=== PATIENT | female | born 1960 | race African-American/Black ===

== ENCOUNTER 2018-04-14 04:58 | Inpatient (IN) | payer OTHER ==
[~2018-04-14] VITALS: Ht 170.2 cm; Wt 59.0 kg
--- NOTE | 2018-04-14 05:10 | PHYS DOC ---
Past Medical History Past Medical History: Other Additional Past Medical Histor: ANOXIC BRAIN INJURY Past Surgical History: Other Additional Past Surgical Histo: POOR HISTORIAN Alcohol Use: None Drug Use: None Adult General Chief Complaint Chief Complaint: ALTERED MENTAL STATUS HPI HPI Patient is a 57 year old female who presents with increased confusion and wandering Patient is a resident of [facility] and [facility]. Nursing staff states that she had increased confusion and wandering over the last 3 hours. She 's been trying to escape from the facility. She is confused and unable to give a history. She is oriented to self only. Review of Systems Review of Systems ROS limites though patient denies complaints, no pain Constitutional: Denies fever or chills [] Eyes: Denies change in visual acuity, redness, or eye pain [] HENT: Denies nasal congestion or sore throat [] Respiratory: Denies cough or shortness of breath [] Cardiovascular: No additional information not addressed in HPI [] GI: Denies abdominal pain, nausea, vomiting, bloody stools or diarrhea [] : Denies dysuria or hematuria [] Musculoskeletal: Denies back pain or joint pain [] Integument: Denies rash or skin lesions [] Neurologic: Denies headache, focal weakness or sensory changes [] Endocrine: Denies polyuria or polydipsia [] All other systems were reviewed and found to be within normal limits, except as documented in this note. Allergies Allergies Allergies Coded Allergies Type Severity Reaction Last Updated Verified No Known Drug Allergies 09/26/13 No Physical Exam Physical Exam Constitutional: Well developed, well nourished, no acute distress, non-toxic appearance. HENT: Normocephalic, atraumatic, bilateral external ears normal, oropharynx moist, no oral exudates, nose normal. Eyes: PERRLA, EOMI, conjunctiva normal, no discharge. Neck: Normal range of motion, no tenderness, supple, no stridor. Cardiovascular:Heart rate regular rhythm, no murmur Lungs & Thorax: Bilateral breath sounds clear to auscultation Abdomen: Bowel sounds normal, soft, no tenderness, no masses, no pulsatile masses. Skin: Warm, dry, no erythema, no rash. Back: No tenderness, no CVA tenderness. Extremities: No tenderness, no cyanosis, no clubbing, ROM intact, no edema. Neurologic: Alert and oriented X 1, normal motor function, normal sensory function, no focal deficits noted. Psychologic: Affect normal, judgement normal, mood normal. Current Patient Data Vital Signs Vital Signs Date Time Temp Pulse Resp B/P (MAP) Pulse Ox O2 Delivery O2 Flow Rate FiO2 04/14/18 04:59 97.8 80 20 153/65 (94) 98 Room Air 97.8 Lab Values Laboratory Tests Test 04/14/18 05:00 04/14/18 05:10 04/14/18 05:30 Urine Opiates Screen Neg (NEG) Urine Methadone Screen Neg (NEG) Urine Barbiturates Neg (NEG) Urine Phencyclidine Screen Neg (NEG) Urine Amphetamine/Methamphetamine Neg (NEG) Urine Benzodiazepines Screen Neg (NEG) Urine Cocaine Screen Neg (NEG) Urine Cannabinoids Screen Neg (NEG) Urine Ethyl Alcohol Neg (NEG) Urine Collection Type Unknown Urine Color Yellow Urine Clarity Clear Urine pH 6.5 Urine Specific [place] 1.015 Urine Protein Negative mg/dL (NEG-TRACE) Urine Glucose (UA) Negative mg/dL (NEG) Urine Ketones (Stick) Negative mg/dL (NEG) Urine Blood Negative (NEG) Urine Nitrite Negative (NEG) Urine Bilirubin Negative (NEG) Urine Urobilinogen Dipstick 0.2 mg/dL (0.2 mg/dL) Urine Leukocyte Esterase Negative (NEG) Urine RBC Occ /HPF (0-2) Urine WBC Occ /HPF (0-4) Urine Squamous Epithelial Cells Few /LPF Urine Bacteria Few /HPF (0-FEW) White Blood Count 4.2 x10^3/uL (4.0-11.0) Red Blood Count 3.99 x10^6/uL (3.50-5.40) Hemoglobin 11.1 g/dL (12.0-15.5) L Hematocrit 32.3 % (36.0-47.0) L Mean Corpuscular Volume 81 fL (79-100) Mean Corpuscular Hemoglobin 28 pg (25-35) Mean Corpuscular Hemoglobin Concent 34 g/dL (31-37) Red Cell Distribution Width 13.7 % (11.5-14.5) Platelet Count 228 x10^3/uL (140-400) Neutrophils (%) (Auto) 48 % (31-73) Lymphocytes (%) (Auto) 41 % (24-48) Monocytes (%) (Auto) 8 % (0-9) Eosinophils (%) (Auto) 2 % (0-3) Basophils (%) (Auto) 1 % (0-3) Neutrophils # (Auto) 2.0 x10^3uL (1.8-7.7) Lymphocytes # (Auto) 1.7 x10^3/uL (1.0-4.8) Monocytes # (Auto) 0.3 x10^3/uL (0.0-1.1) Eosinophils # (Auto) 0.1 x10^3/uL (0.0-0.7) Basophils # (Auto) 0.0 x10^3/uL (0.0-0.2) Sodium Level 142 mmol/L (136-145) Potassium Level 3.9 mmol/L (3.5-5.1) Chloride Level 106 mmol/L (98-107) Carbon Dioxide Level 26 mmol/L (21-32) Anion Gap 10 (6-14) Blood Urea Nitrogen 12 mg/dL (7-20) Creatinine 0.8 mg/dL (0.6-1.0) Estimated GFR (Cockcroft-Gault) 89.1 BUN/Creatinine Ratio 15 (6-20) Glucose Level 110 mg/dL (70-99) H Calcium Level 9.3 mg/dL (8.5-10.1) Total Bilirubin 0.3 mg/dL (0.2-1.0) Aspartate Amino Transferase (AST) 10 U/L (15-37) L Alanine Aminotransferase (ALT) 14 U/L (14-59) Alkaline Phosphatase 59 U/L (46-116) Troponin I Quantitative < 0.017 ng/mL (0.000-0.055) Total Protein 7.3 g/dL (6.4-8.2) Albumin 3.2 g/dL (3.4-5.0) L Albumin/Globulin Ratio 0.8 (1.0-1.7) L Thyroid Stimulating Hormone (TSH) 2.065 uIU/mL (0.358-3.74) Salicylates Level < 2.8 mg/dL (2.8-20.0) L Salicylate Last Dose Date Unknown Salicylate Last Dose Time Unknown Acetaminophen Level < 2 mcg/ml (10-30) L Acetaminophen Last Dose Date Unknown Acetaminophen Last Dose Time Unknown Ethyl Alcohol Level < 10 mg/dL (0-10) Laboratory Tests 04/14/18 05:30 Laboratory Tests 04/14/18 05:30 EKG EKG ECG 05:20 SB @ 59 with normal axis, normal intervals and no ST-T wave changes suggestive of ischemia Radiology/Procedures Radiology/Procedures [facility] [address] [place] [address] IMAGING REPORT Signed PATIENT: ANETA LIND ACCOUNT: [id number] : 1960 LOCATION: ER AGE: 57 SEX: F EXAM STATUS: REG ER ORD. PHYSICIAN: MARTIN ALLEN MD REASON: confusion-NOT READY 525 PROCEDURE: CHEST AP ONLY CT head without contrast: Reason for examination: Confusion. Comparison is made to previous study dated 07/14/2010. Axial images were obtained through the brain. No contrast was administered. Exposure: One or more of the following individualized dose reduction techniques were utilized for this examination: 1. Automated exposure control 2. Adjustment of the mA and/or kV according to patient size 3. Use of iterative reconstruction technique. The ventricular systems are symmetric and not abnormally dilated. No midline shift is seen. There appears to be some generalized cerebral atrophy with prominence of the CSF spaces especially anterior to the frontal lobes. No midline shift is seen. There is no evidence of intracranial hemorrhage, acute infarct, mass or edema. No abnormalities are seen at the orbits. The paranasal sinuses and mastoid air cells are clear. No acute abnormality seen at the skull. IMPRESSION: Cerebral atrophy. No acute intracranial abnormality evident. Chest AP portable at 0545: The heart size is normal. Mediastinum is unremarkable. Lung verde are clear. No acute bony abnormalities are seen. IMPRESSION: No acute cardiopulmonary disease. Electronically signed by: Tyrell Bonilla MD (04/14/2018 6:09 AM) [facility] DICTATED and SIGNED BY: TYRELL BONILLA MD DATE: 04/14/18605 Course & Med Decision Making Course & Med Decision Making Pertinent Labs and Imaging studies reviewed. (See chart for details) Emergency Department Course Patient with dementia presents with increased confusion DDx- acute encephalopathy, intoxication, infection, dehydration Patient was stable in the ED. Head CT scan unremarkable. CXR unremarkable. ECG and troponin showed no evidence of ACS. Labs unremarkable. U/A unremarkable. 19:15 Patient medically cleared for behavioral health assessment. [facility] has no bed availability 19:[address] Lindsey who agreed with admission. Patient will be 1:1 with sitter. Apoorva Disclaimer Cosmoon Disclaimer This electronic medical record was generated, in whole or in part, using a voice recognition dictation system. Departure Departure Impression: Primary Impression: Dementia with behavioral disturbance Disposition: 09 ADMITTED INPATIENT Admitting Physician: Alistair Lindsey Condition: STABLE Referrals: NON,STAFF (PCP) Problem Qualifiers Primary Impression: Dementia with behavioral disturbance Dementia type: unspecified type Qualified Codes: F03.91 - Unspecified dementia with behavioral disturbance MARTIN ALLEN MD Apr 14, 2018 05:10
[2018-04-14 05:40] LABS: BASO % 1 % (0-3); EOS # 0.1 x10^3/uL (0.0-0.7); EOS % 2 % (0-3); HEMATOCRIT 32.3 % (36.0-47.0); HEMOGLOBIN 11.1 g/dL (12.0-15.5); LYMPH # 1.7 x10^3/uL (1.0-4.8); LYMPH % 41 % (24-48); MEAN CORPUSCULAR HEMOGLOBIN 28 pg (25-35); MEAN CORPUSCULAR HGB CONC 34 g/dL (31-37); MEAN CORPUSCULAR VOLUME 81 fL (79-100); MONO # 0.3 x10^3/uL (0.0-1.1); MONO % 8 % (0-9); NEUT % 48 % (31-73); PLATELET COUNT 228 x10^3/uL (140-400); RED BLOOD COUNT 3.99 x10^6/uL (3.50-5.40); RED CELL DISTRIBUTION WIDTH 13.7 % (11.5-14.5); WHITE BLOOD COUNT 4.2 x10^3/uL (4.0-11.0)
[2018-04-14 05:55] LABS: AMPHETAMINE/METHAMPHETAMINE NEG (NEG); BARBITURATES NEG (NEG); BENZODIAZEPINES NEG (NEG); CANNABINOIDS NEG (NEG); COCAINE NEG (NEG); METHADONE NEG (NEG); OPIATES NEG (NEG); PHENCYCLIDINE NEG (NEG)
[2018-04-14 05:55] LABS: CALCIUM 9.3 mg/dL (8.5-10.1); CREATININE 0.8 mg/dL (0.6-1.0); GFR 89.1; POTASSIUM 3.9 mmol/L (3.5-5.1)
[2018-04-14 06:00] LABS: ALBUMIN 3.2 g/dL (3.4-5.0); ALBUMIN/GLOBULIN RATIO 0.8 (1.0-1.7); TOTAL BILIRUBIN 0.3 mg/dL (0.2-1.0); TOTAL PROTEIN 7.3 g/dL (6.4-8.2)
[2018-04-14 06:07] LABS: ACETAMIN < 2 mcg/ml (10-30); ETHANOL < 10 mg/dL (0-10); SALIC < 2.8 mg/dL (2.8-20.0)
--- NOTE | 2018-04-14 06:12 | RAD ---
CT head without contrast: Reason for examination: Confusion. Comparison is made to previous study dated 07/14/2010. Axial images were obtained through the brain. No contrast was administered. Exposure: One or more of the following individualized dose reduction techniques were utilized for this examination: 1. Automated exposure control 2. Adjustment of the mA and/or kV according to patient size 3. Use of iterative reconstruction technique. The ventricular systems are symmetric and not abnormally dilated. No midline shift is seen. There appears to be some generalized cerebral atrophy with prominence of the CSF spaces especially anterior to the frontal lobes. No midline shift is seen. There is no evidence of intracranial hemorrhage, acute infarct, mass or edema. No abnormalities are seen at the orbits. The paranasal sinuses and mastoid air cells are clear. No acute abnormality seen at the skull. IMPRESSION: Cerebral atrophy. No acute intracranial abnormality evident. Chest AP portable at 0545: The heart size is normal. Mediastinum is unremarkable. Lung verde are clear. No acute bony abnormalities are seen. IMPRESSION: No acute cardiopulmonary disease. Electronically signed by: Mili Soto MD (04/14/2018 6:09 AM) [facility]
[2018-04-14 06:42] LABS: BILIRUBIN,URINE NEGATIVE (NEG); CLARITY,URINE CLEAR; COLOR,URINE YELLOW; NITRITE,URINE NEGATIVE (NEG); PH,URINE 6.5; PROTEIN,URINE NEGATIVE (NEG-TRACE); UROBILINOGEN,URINE 0.2 mg/dL (0.2 mg/dL)
[2018-04-14 06:55] LABS: BACTERIA,URINE FEW /HPF (0-FEW); RBC,URINE OCC /HPF (0-2); SQUAMOUS EPITHELIAL CELL,UR FEW /LPF; WBC,URINE OCC /HPF (0-4)
--- NOTE | 2018-04-14 08:22 | EKG ---
[facility] [address] [place] [address] Test Date: 2018-04-14 Test Time: 05:20:56 Pat Name: ANETA LIND Department: Room: Gender: F Shipping Agent: MIKHAIL : 1960 Requested By: MARTIN ALLEN Order Number: [id number] Reading MD: Deon Gallegos MD Measurements Intervals [place] Rate: 59 P: 56 CO: 148 QRS: 14 QRSD: 84 T: 17 QT: 452 QTc: 452 Interpretive Statements SINUS RHYTHM Electronically Signed On 04-17-2018 8:47:36 CDT by Deon Gallegos MD
[2018-04-14 11:00] VITALS: BP 112/57
[2018-04-14] MEDS ORDERED: MELA3TAB2 PO (11:21)
[2018-04-14] MEDS ORDERED: BUSP5TAB PO (11:21)
[2018-04-14] MEDS ORDERED: ACET325T9 PO (11:37)
[2018-04-14] MEDS ORDERED: MAGN400O7 PO (11:37)
--- NOTE | 2018-04-14 12:33 | SSS ---
ADMIT DATE: 04/14/2018 SHORT STAY SUMMARY CHIEF COMPLAINT: Mental status change. HISTORY OF PRESENT ILLNESS: The patient is a pleasant 57-year-old female who appears a little older than her stated age. Basically, she lives in a correction because she has got anoxic brain injury. Apparently, she has been doing some wandering; this was a little bit of a change for her. She was brought to the ER for evaluation. We really did not come up with much. The ER doctor called me this morning explaining the situation. I said we will go ahead and admit her and observe her overnight and if she is doing well, we will let her go back tomorrow. PAST MEDICAL HISTORY: Anoxic brain injury, dementia. ALLERGIES: None. FAMILY HISTORY: Hypertension. SOCIAL HISTORY: She does not drink, smoke or take drugs. She lives at a correction. MEDICATIONS: Reviewed, she is on 2. REVIEW OF SYSTEMS: Unable to obtain, the patient is too confused. PHYSICAL EXAMINATION: VITAL SIGNS: Temperature 97, pulse 60, respirations 18 and blood pressure 153/65. GENERAL: She is awake, watching TV. She has 1:1 observation, but really probably does not need it. She is very pleasant, at her baseline. HEART: Normal S1, S2. LUNGS: Clear. ABDOMEN: Soft. EXTREMITIES: No edema. SKIN: No rash. ENDOCRINE: No thyromegaly. LYMPHATICS: No cervical nodes. HEMATOPOIETIC: No bruising. LABORATORY DATA: Hematology is normal, other than hemoglobin of 11. Electrolytes are normal. Troponin is negative. CT of the head shows atrophy. Chest x-ray, no acute disease. ASSESSMENT AND PLAN: Mental status change in an elderly female who has known dementia with anoxic brain injury. We suspect she may have had a transient ischemic attack. I will go ahead and start her on aspirin, watch her overnight and have physical therapy and occupational therapy check her better. If she is doing well, we will let her go back to the correction in the morning. DISPOSITION: assisted. ACTIVITY: As tolerated. DIET: Low sodium. MEDICATIONS: Please see the MRAD. KAUR DWYER DO DR: CANDY/brooklyn JOB#: [id number] / [id number]
[2018-04-14] MEDS ORDERED: INFLUENZA VAX SCREEN BY RX. MC ONE (12:45)
[2018-04-14 15:00] VITALS: BP 114/64
[2018-04-14] MEDS: ASPIRIN CHEWABLE 81 MG TABLET. PO SCH (15:05)
[2018-04-14] MEDS ORDERED: ACETAMINOPHEN 325 MG TABLET. PO PRN (15:15)
[2018-04-14 19:00] VITALS: BP 127/70
[2018-04-14] MEDS: busPIRone 5 MG TABLET. PO SCH (20:32)
[2018-04-15] MEDS ORDERED: MAGNESIUM HYDROXIDE 2,400 MG/30 ML ORAL.SUSP. PO PRN (09:00)
[2018-04-15] MEDS: ASPIRIN CHEWABLE 81 MG TABLET. PO SCH (09:19)
[2018-04-15] MEDS: busPIRone 5 MG TABLET. PO SCH (09:19)
--- NOTE | 2018-04-15 11:09 | PDOC ---
PROGRESS NOTES Chief Complaint Chief Complaint Mental Status Changes Dementia History of Present Illness History of Present Illness Pt seen and examined Dw RN Pt at baseline Vitals Vitals Vital Signs Date Time Temp Pulse Resp B/P (MAP) Pulse Ox O2 Delivery O2 Flow Rate FiO2 04/15/18 08:00 Room Air 04/15/18 07:00 98.0 60 20 100 98.0 04/14/18 19:00 127/70 (89) Physical Exam General: No acute distress Heart: Regular rate, Normal S1 Lungs: Clear Abdomen: Normal bowel sounds, Soft Extremities: No clubbing, No edema Skin: No rashes, No breakdown Review of Systems Review of Systems Denies fever Slow mentation Assessment and Plan Assessmemt and Plan Assessment: Mental Status Changes Dementia Plan: Pt at baseline Discharge Comment Review of Relevant I have reviewed the following items ashok (where applicable) has been applied. Labs Laboratory Tests Test 04/14/18 05:00 04/14/18 05:10 04/14/18 05:30 Urine Opiates Screen Neg (NEG) Urine Methadone Screen Neg (NEG) Urine Barbiturates Neg (NEG) Urine Phencyclidine Screen Neg (NEG) Urine Amphetamine/Methamphetamine Neg (NEG) Urine Benzodiazepines Screen Neg (NEG) Urine Cocaine Screen Neg (NEG) Urine Cannabinoids Screen Neg (NEG) Urine Ethyl Alcohol Neg (NEG) Urine Collection Type Unknown Urine Color Yellow Urine Clarity Clear Urine pH 6.5 Urine Specific [place] 1.015 Urine Protein Negative mg/dL (NEG-TRACE) Urine Glucose (UA) Negative mg/dL (NEG) Urine Ketones (Stick) Negative mg/dL (NEG) Urine Blood Negative (NEG) Urine Nitrite Negative (NEG) Urine Bilirubin Negative (NEG) Urine Urobilinogen Dipstick 0.2 mg/dL (0.2 mg/dL) Urine Leukocyte Esterase Negative (NEG) Urine RBC Occ /HPF (0-2) Urine WBC Occ /HPF (0-4) Urine Squamous Epithelial Cells Few /LPF Urine Bacteria Few /HPF (0-FEW) White Blood Count 4.2 x10^3/uL (4.0-11.0) Red Blood Count 3.99 x10^6/uL (3.50-5.40) Hemoglobin 11.1 g/dL (12.0-15.5) Hematocrit 32.3 % (36.0-47.0) Mean Corpuscular Volume 81 fL (79-100) Mean Corpuscular Hemoglobin 28 pg (25-35) Mean Corpuscular Hemoglobin Concent 34 g/dL (31-37) Red Cell Distribution Width 13.7 % (11.5-14.5) Platelet Count 228 x10^3/uL (140-400) Neutrophils (%) (Auto) 48 % (31-73) Lymphocytes (%) (Auto) 41 % (24-48) Monocytes (%) (Auto) 8 % (0-9) Eosinophils (%) (Auto) 2 % (0-3) Basophils (%) (Auto) 1 % (0-3) Neutrophils # (Auto) 2.0 x10^3uL (1.8-7.7) Lymphocytes # (Auto) 1.7 x10^3/uL (1.0-4.8) Monocytes # (Auto) 0.3 x10^3/uL (0.0-1.1) Eosinophils # (Auto) 0.1 x10^3/uL (0.0-0.7) Basophils # (Auto) 0.0 x10^3/uL (0.0-0.2) Sodium Level 142 mmol/L (136-145) Potassium Level 3.9 mmol/L (3.5-5.1) Chloride Level 106 mmol/L (98-107) Carbon Dioxide Level 26 mmol/L (21-32) Anion Gap 10 (6-14) Blood Urea Nitrogen 12 mg/dL (7-20) Creatinine 0.8 mg/dL (0.6-1.0) Estimated GFR (Cockcroft-Gault) 89.1 BUN/Creatinine Ratio 15 (6-20) Glucose Level 110 mg/dL (70-99) Calcium Level 9.3 mg/dL (8.5-10.1) Total Bilirubin 0.3 mg/dL (0.2-1.0) Aspartate Amino Transf (AST/SGOT) 10 U/L (15-37) Alanine Aminotransferase (ALT/SGPT) 14 U/L (14-59) Alkaline Phosphatase 59 U/L (46-116) Troponin I Quantitative < 0.017 ng/mL (0.000-0.055) Total Protein 7.3 g/dL (6.4-8.2) Albumin 3.2 g/dL (3.4-5.0) Albumin/Globulin Ratio 0.8 (1.0-1.7) Thyroid Stimulating Hormone (TSH) 2.065 uIU/mL (0.358-3.74) Salicylates Level < 2.8 mg/dL (2.8-20.0) Salicylate Last Dose Date Unknown Salicylate Last Dose Time Unknown Acetaminophen Level < 2 mcg/ml (10-30) Acetaminophen Last Dose Date Unknown Acetaminophen Last Dose Time Unknown Ethyl Alcohol Level < 10 mg/dL (0-10) Medications Current Medications Aspirin (Children'S Aspirin) 81 mg [id number] PO Last administered on at 09:19; Start 04/14/18 at 12:00 Info (FLU VACCINE SCREEN per RX) 1 each 1X ONCE [facility] ; Start 04/14/18 at 12:45; Stop 04/14/18 at 12:46; Status UNV Influenza Virus Vaccine (Afluria Trivalent [id number] Syringe) 0.5 ml ONCE ONCE VAX IM Last administered on 04/14/18at 15:07; Start 04/14/18 at 12:45; Stop 04/14/18 at 12:46; Status DC Acetaminophen (Tylenol) 650 mg PRN Q6HRS PRN PO PAIN; Start 04/14/18 at 15:15 Buspirone HCl (Buspar) 5 mg BID PO Last administered on 04/15/18at 09:19; Start 04/14/18 at 21:00 Magnesium Hydroxide (Milk Of Magnesia) 2,400 mg PRN DAILY PRN PO CONSTIPATION; Start 04/15/18 at 09:00 Active Scripts Active Reported Tylenol (Acetaminophen) 325 Mg Tablet 2 Tab PO PRN Q6HRS PRN Milk Of Magnesia (Magnesium Hydroxide) 400 Mg/5 Ml Oral.susp 400 Mg PO DAILY Melatonin 3 Mg Tablet 3 Mg PO QHS Buspirone Hcl 5 Mg Tablet 5 Mg PO BID Vitals/I & O Vital Sign - Last 24 Hours 04/14/18 04/14/18 04/14/18 04/14/18 11:45 15:00 19:00 19:26 Temp 98.6 98.1 98.6 98.1 Pulse 50 54 Resp 18 18 B/P (MAP) 114/64 (81) 127/70 (89) Pulse Ox 99 97 O2 Delivery Room Air Room Air Room Air Room Air 04/14/18 04/15/18 04/15/18 04/15/18 23:00 03:00 07:00 08:00 Temp 98.0 98.0 Pulse 60 Resp 20 Pulse Ox 100 O2 Delivery Room Air Room Air Room Air Room Air Intake and Output 04/14/18 04/14/18 04/15/18 15:00 23:00 07:00 Intake Total 1500 ml Balance 1500 ml KAUR DWYER III DO Apr 15, 2018 11:09
--- NOTE | 2018-04-15 11:16 | DISCH ---
DISCHARGE WITH HOME HEALTH DISCHARGE INFORMATION: Final Diagnosis: Problems Medical Problems: (1) Dementia with behavioral disturbance Status: Acute Condition on Discharge: Stable CODE STATUS: Code Status: Full HOME HEALTH: Face to Face: I certify this patient is under my care and that I, or a nurse practitioner or physician's ssn/ssbn assistant navigator working with me, had a face to face encounter that meets the physician face to face encounter requirements with this patient on []. Medical Complications: Dementia Physical Therapy For: Evalulation/Treatment Occupational Therapy For: Evaluation/Treatment POST DISCHARGE ORDERS: Activity Instructions for Disc: Resume previous activity DIET AFTER DISCHARGE: Cardiac CERTIFICATION STATEMENT: Certification Statement: Certification Statement: Based on the above finding, I certify that this patient is confined to the home and needs intermittent snf care, physical therapy and/or speech therapy, or continues to need occupational therapy.~ This patient is under my care, and I have initiated the establishment of the plan of care.~ This patient will be followed by myself or a community physician who will periodically review the plan of care. Home Meds Reported Medications Acetaminophen (TYLENOL) 325 Mg Tablet, 2 TAB PO PRN Q6HRS PRN for PAIN, TAB 04/14/18 Magnesium Hydroxide (MILK OF MAGNESIA) 400 Mg/5 Ml Oral.susp, 400 MG PO DAILY, MISC 04/14/18 Melatonin (MELATONIN) 3 Mg Tablet, 3 MG PO QHS, TAB 04/14/18 Buspirone Hcl (BUSPIRONE HCL) 5 Mg Tablet, 5 MG PO BID, TAB 04/14/18 KAUR DWYER III, DO Apr 15, 2018 11:16
== END 2018-04-15 16:35 | disposition home or self-care (01) | DRG 69 ==
LOC: ER 04:58 → ED HOLD 07:19 → 5 SOUTH 10:37
PROVIDERS: ADMIT Internal Medicine; ATTEND Internal Medicine
DX: G45.9 Transient cerebral ischemic attack, unspecified (principal); F03.91 Unspecified dementia, unspecified severity, with behavioral disturbance; G93.1 Anoxic brain damage, not elsewhere classified; Z82.49 Family history of ischemic heart disease and other diseases of the circulatory system; R41.82 Altered mental status, unspecified
CPT/HCPCS: 36415; 70450; 71045; 80053; 80307; 80329; 81001; 84443; 84484; 85025; 90471; 90756; 93005; G0480; G6039; 99285-25; G0479; Q2035

== ENCOUNTER 2020-03-13 13:40 | Emergency (ER) | payer MEDICARE, OTHER ==
[~2020-03-13] VITALS: Ht 170.2 cm; Wt 68.0 kg
[~2020-03-13 13:40] MED LIST: ACET325T9 PO; BUSP5TAB PO; MAGN400O7 PO; MELA3TAB4 PO
[2020-03-13 14:24] LABS: BASO % 1 % (0-3); EOS % 0 % (0-3); HEMATOCRIT 37.1 % (36.0-47.0); HEMOGLOBIN 12.5 g/dL (12.0-15.5); LYMPH # 1.3 x10^3/uL (1.0-4.8); LYMPH % 16 % (24-48); MEAN CORPUSCULAR HEMOGLOBIN 28 pg (25-35); MEAN CORPUSCULAR HGB CONC 34 g/dL (31-37); MEAN CORPUSCULAR VOLUME 82 fL (79-100); MONO # 0.4 x10^3/uL (0.0-1.1); MONO % 4 % (0-9); NEUT # 6.6 x10^3/uL (1.8-7.7); NEUT % 79 % (31-73); PLATELET COUNT 257 x10^3/uL (140-400); RED CELL DISTRIBUTION WIDTH 13.4 % (11.5-14.5); WHITE BLOOD COUNT 8.3 x10^3/uL (4.0-11.0)
[2020-03-13 14:37] LABS: CALCIUM 9.3 mg/dL (8.5-10.1); CREATININE 0.9 mg/dL (0.6-1.0); GFR 77.3; POTASSIUM 4.3 mmol/L (3.5-5.1)
[2020-03-13 14:43] LABS: ALBUMIN 3.5 g/dL (3.4-5.0); ALBUMIN/GLOBULIN RATIO 0.7 (1.0-1.7); MAGNESIUM 2.1 mg/dL (1.8-2.4); TOTAL BILIRUBIN 0.4 mg/dL (0.2-1.0); TOTAL PROTEIN 8.2 g/dL (6.4-8.2)
--- NOTE | 2020-03-13 19:06 | PHYS DOC ---
Past Medical History Past Medical History: Other Additional Past Medical Histor: ANOXIC BRAIN INJURY (CHRISTINE LOGAN APRN) Past Surgical History: Other Additional Past Surgical Histo: POOR HISTORIAN (CHRISTINE LOGAN APRN) Smoking Status: Never Smoker Alcohol Use: None Drug Use: None (CHRISTINE LOGAN APRN) General Adult EDM: Chief Complaint: NAUSEA/VOMITING/DIARRHA HPI: HPI: Patient is a 59 year old AA female brought to the emergency department via EMS with reports of nausea, vomiting, and diarrhea from [facility]. MS reported that the patient tested positive for lopez virus a few weeks ago and was sent to the emergency room today for evaluation. The patient is nonverbal however she answers yes or no by moving her head. The patient denies any nausea, vomiting, diarrhea, abdominal pain, or fever. She only complains of body aches at this time the patient currently denies any pain. HPI is limited due to patient's nonverbal status. (CHRISTINE LOGAN APRN) Review of Systems: Review of Systems: Complete ROS is negative unless otherwise stated in the HPI. (CHRISTINE LOGAN APRN) Heart Score: Risk Factors: Risk Factors: DM, Current or recent (<one month) smoker, HTN, HLP, family history of CAD, obesity. Risk Scores: Score 0 - 3: 2.5% MACE over next 6 weeks - Discharge Home Score 4 - 6: 20.3% MACE over next 6 weeks - Admit for Clinical Observation Score 7 - 10: 72.7% MACE over next 6 weeks - Early Invasive Strategies (CHRISTINE LOGAN APRN) Allergies: Allergies: Allergies Coded Allergies Type Severity Reaction Last Updated Verified No Known Drug Allergies 09/26/13 No (CHRISTINE LOGAN APRN) Physical Exam: PE: Constitutional: Well developed, well nourished, no acute distress, non-toxic appearance. [] HENT: Normocephalic, atraumatic, bilateral external ears normal, nose normal. [] Eyes: PERRLA, EOMI, conjunctiva normal, no discharge. [] Neck: Normal range of motion, no stridor. [] Cardiovascular:Heart rate regular rhythm Lungs & Thorax: Lungs CTA, respirations even and unlabored, no retractions, no respiratory distress Abdomen: soft, no tenderness, bowel sounds active Skin: Warm, dry, no erythema, no rash. [] Extremities: No cyanosis, ROM intact, no edema. [] Neurologic: Alert and oriented X 3, no focal deficits noted. [] Psychologic: Affect normal, judgement normal, mood normal. [] (CHRISTINE LOGAN APRN) Current Patient Data: Labs: Laboratory Tests Test 03/13/20 14:13 White Blood Count 8.3 x10^3/uL (4.0-11.0) Red Blood Count 4.50 x10^6/uL (3.50-5.40) Hemoglobin 12.5 g/dL (12.0-15.5) Hematocrit 37.1 % (36.0-47.0) Mean Corpuscular Volume 82 fL (79-100) Mean Corpuscular Hemoglobin 28 pg (25-35) Mean Corpuscular Hemoglobin Concent 34 g/dL (31-37) Red Cell Distribution Width 13.4 % (11.5-14.5) Platelet Count 257 x10^3/uL (140-400) Neutrophils (%) (Auto) 79 % (31-73) H Lymphocytes (%) (Auto) 16 % (24-48) L Monocytes (%) (Auto) 4 % (0-9) Eosinophils (%) (Auto) 0 % (0-3) Basophils (%) (Auto) 1 % (0-3) Neutrophils # (Auto) 6.6 x10^3/uL (1.8-7.7) Lymphocytes # (Auto) 1.3 x10^3/uL (1.0-4.8) Monocytes # (Auto) 0.4 x10^3/uL (0.0-1.1) Eosinophils # (Auto) 0.0 x10^3/uL (0.0-0.7) Basophils # (Auto) 0.0 x10^3/uL (0.0-0.2) Sodium Level 141 mmol/L (136-145) Potassium Level 4.3 mmol/L (3.5-5.1) Chloride Level 106 mmol/L (98-107) Carbon Dioxide Level 29 mmol/L (21-32) Anion Gap 6 (6-14) Blood Urea Nitrogen 16 mg/dL (7-20) Creatinine 0.9 mg/dL (0.6-1.0) Estimated GFR (Cockcroft-Gault) 77.3 BUN/Creatinine Ratio 18 (6-20) Glucose Level 91 mg/dL (70-99) Calcium Level 9.3 mg/dL (8.5-10.1) Magnesium Level 2.1 mg/dL (1.8-2.4) Total Bilirubin 0.4 mg/dL (0.2-1.0) Aspartate Amino Transferase (AST) 18 U/L (15-37) Alanine Aminotransferase (ALT) 21 U/L (14-59) Alkaline Phosphatase 70 U/L (46-116) Total Protein 8.2 g/dL (6.4-8.2) Albumin 3.5 g/dL (3.4-5.0) Albumin/Globulin Ratio 0.7 (1.0-1.7) L Lipase 68 U/L (73-393) L Laboratory Tests 03/13/20 14:13 Laboratory Tests 03/13/20 14:13 Vital Signs: Vital Signs Date Time Temp Pulse Resp B/P (MAP) Pulse Ox O2 Delivery O2 Flow Rate FiO2 03/13/20 15:16 83 138/84 (102) 100 Room Air 03/13/20 13:40 99.6 14 99.6 (CHRISTINE LOGAN APRN) EKG: EKG: [] (CHRISTINE LOGAN APRN) Radiology/Procedures: Radiology/Procedures: [] (CHRISTINE LOGAN APRN) Course & Med Decision Making: Course & Med Decision Making Pertinent Labs and Imaging studies reviewed. (See chart for details) Patient is a 59-year-old female was sent to the emergency department from her care home for evaluation with reports of nausea, vomiting, and diarrhea. The patient denied any complaints upon arrival. CBC and CMP were unremarkable. We are unable to obtain a urine sample from the patient. Her vital signs are stable throughout the emergency department visit. The patient did not have any episodes of nausea, vomiting, or diarrhea while in the emergency department. Will discharge patient back to the care home facility. [] (CHRISTINE LOGAN APRN) Course & Med Decision Making I have reviewed the PA/PORTAL ARCHITECT's note and Plan of Care. I was available for consultation as needed during the patient's visit in the emergency department. I agree with the clinical impression, plans and disposition. (KATARINA SEXTON MD) Dragon Disclaimer: Dragon Disclaimer: This electronic medical record was generated, in whole or in part, using a voice recognition dictation system. (CHRISTINE LOGAN APRN) Departure Departure Impression: Primary Impression: Person with feared complaint in whom no diagnosis is made Disposition: HOME, SELF-CARE Condition: STABLE Patient Instructions: Medical Screening Exam Additional Instructions: The patient's CBC, CMP, and lipase were all normal in the emergency department today. The patient did not have any episodes of nausea, vomiting, or diarrhea while in our care. Follow-up with her primary care physician in 1 to 2 days. Return to the ER symptoms worsen or patient develops a fever. Justicifation of Admission Dx: Justifications for Admission: Justification of Admission Dx: N/A (CHRISTINE LOGAN APRN) CHRISTINE LOGAN APRN Mar 13, 2020 19:06 KATARINA SEXTON MD Mar 14, 2020 20:28
[2020-03-13 19:13] VITALS: BP 165/70
== END 2020-03-13 19:19 | disposition home or self-care (01) ==
LOC: ER 13:40
DX: Z71.1 Person with feared health complaint in whom no diagnosis is made (principal); U07.1 COVID-19
CPT/HCPCS: 36415; 80053; 83690; 83735; 85025; 99285